=== PATIENT | female | born 1970 | race Caucasian/White ===

== ENCOUNTER 2025-11-07 09:55 | Outpatient (AMB) | payer BC, SELFPAY ==
--- NOTE | 2025-11-07 09:58 | A.OFFPC_ITS ---
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 Note: had partial hysterectomy and part of thyroid removed due to masses on thyroid Accompanied by: Self / Same As Patient Allergies hydromorphone (From Dilaudid) Adverse Reaction (Severe, Verified 11/07/25 10:09) Vomiting Tobacco use date assessed: 11/07/25 Dental Screening Dental Screen Date: 11/07/25 Did you have a dental visit in the last 12 months?: Yes Was dental information given to patient?: Patient has dentist HPI HPI Comments History of Present Illness Details History of Present Illness The patient is a 54 year old female presenting to [facility] care with a new primary care physician after moving from [place] to [place]. 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 She underwent [facility] disc replacements in her neck pe rformed by Dr. Crawley at [facility] [place]. Associated symptoms include nerve damage, with shooting pains up her spine, spasms, and numbness in her arm and foot. She reports her lower back is not currently operable. Past medications for this include Nortriptyline, which she is attempting to taper, and low-dose naltrexone. Hypothyroidism: The patient has a history of a partial thyroidectomy, resulting in hypothyroidism for which she takes [place] Thyroid. Her current dosage is 45 mg (a 30 mg and a 15 mg pill). This medication was started by a PA at [facility] and is chosen over synthetic options like Synthroid due to the patient's preference for a natural treatment and her observation that friends on synthetic thyroid hormones have more associated health problems. She undergoes regular blood work to monitor her T3 and T4 levels. Fibromyalgia: The patient has been diagnosed with fibromyalgia by multiple doctors, most recently by [facility] and a physician in [place]. She also mentions a diagnosis of spondylomalgia, which she does not believe in, viewing it as a label for unexplained nerve issues. Symptoms include shooting pains, soreness in the shoulders and hips, and discomfort that affects her sleep. Her mother was also diagnosed with fibromyalgia. Perimenopausal state: The patient believes she is in a perimenopausal phase, which is monitored via blood work due to her partial hysterectomy. She reports still feeling like she gets a period, experiencing about one week per month where she has an intractable headache. She is working with [facility] to manage her hormones and wishes to be progressive with treatment to avoid symptoms like lethargy and hot flashes. Partial Hysterectomy: The patient has a history of a partial hysterectomy. She acknowledges she still has a uterus. Her last Pap smear was about a year ago, and she needs to establish care with a new MEDICAL SPECIALIST. Migraine: The patient experiences severe migraines for which she takes sumatriptan as needed. She is working with [facility] to reduce her reliance on sumatriptan by taking supplements such as a specific type of magnesium, CoQ10, and vitamin D. This approach has resulted in her taking less sumatriptan. She links some headaches to her perimenopausal hormonal cycle, noting a week each month with severe headaches. History of parasitic infections: The patient reports a history of multiple parasitic infections due to spending a lot of time outdoors. This includes a history of Lyme disease and another inf ection acquired while hiking in [facility], which required eight months of medication to resolve. Surgical History: - [facility] disc replacements in her neck - Partial thyroidectomy - Partial hysterectomy - Knee surgery (details not specified) - Nose surgery for a bleeding open vesse l - Breast augmentation (over 20 years ago ) Medications: - Nortriptyline: for spinal nerve damage and restless legs syndrome. - Sumatriptan: as needed for severe migr aines. - [place] Thyroid 45 mg (30 mg and 15 mg) : for hypothyroidism following partial thyroidectomy. - Naltrexone (low dose): for neuropathic pain. - Magnesium, CoQ10, Vitamin D: supplemen ts for headache management. Social History: - Substance Use: Denies ever smoking or using illicit drugs. 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 - Exercise: Has a fitness background and is knowledgeable about physical therapy and strength moves. - Housing/Family: Recently moved from [facility] to [place]. - Body composition: Reports having a bod y fat percentage below 12% when she was a licensed mental health professional. Family History: - Mother: Diagnosed with fibromyalgia. - Colon Cancer: Denies any close family history of colon cancer. Diagnostic Results: - Pap smear: a pap smear was performed a bout a year ago. - Mammogram: The last mammogram was perf ormed at [facility] [place] many years ago. - Lab work: The patient reports being lo w on vitamin D. Past Medical History - Spinal injuries, including broken neck and herniated discs, status post cervical disc replacement. - Hypothyroidism, status post partial th yroidectomy. - Partial hysterectomy. - Restless legs syndrome. - Diagnosed with autoimmune disorder. - Severe migraines. - Perimenopausal state. - Fibromyalgia. - History of Lyme disease. - History of parasitic infection requiri ng eight months of treatment. - Allergy to Dilaudid. - History of multiple bone fractures. Health Maintenance - Colon Cancer Screening: She is due for screening and has no family history of colon cancer. - Cervical Cancer Screening: She had a P ap smear one year ago and is due for follow-up, pending review of records to determine if a 3 or 5-year interval is appropriate. - Breast Cancer Screening: She has a his tory of breast augmentation over 20 years ago. - Her last mammogram at [facility] [place] was many years ago, and a specialist recently recommended a scan for follow-up. [facility] Medical History (Updated 11/07/25 @ 19:24 by Gregory Sargent MD) History of Lyme disease Restless leg syndrome History of parasitic infection Migraine Perimenopause Fibromyalgia Hypothyroid Surgical History (Updated 11/07/25 @ 19:24 by Gregory Sargent MD) History of partial hysterectomy Family History (Updated 11/07/25 @ 09:59 by Karina Stephens CMA) Mother No problems noted. Father No problems noted. Social History Housing: House Patient Tobacco Use Status: Never used Tobacco e-Cigarette/Vaping Use: Never Used service: No Current occupational status: employed Cognitive needs: No Hearing needs: No Vision needs: Yes (glasses) Questionnaire PHQ-9 Over the last 2 weeks, how often have you been bothered by any of the following problems? 1. Little interest or pleasure in doing things: not at all 2. Feeling down, depressed, or hopeless: not at all 3. Trouble falling or staying asleep, or sleeping too much: not at all 4. Feeling tired or having little energy: not at all 5. Poor appetite or overeating: not at all 6. Feeling bad about yourself - or that you are a failure or have let yourself or your family down: not at all 7. Trouble concentrating on things, such as reading the newspaper or watching television: not at all 8. Moving or speaking so slowly that other people could have noticed. Or the opposite - being so fidgety or restless that you have been moving around a lot more than usual: not at all 9. Thoughts that you would be better off or of hurting yourself in some way: not at all Total score: 0 Depression Screening Interpretation: Negative Depression Screening Done: Yes Source: Developed by Drs. Keith Pate, Matilde Pacheco, Dominic Sheikh and colleagues, with an educational marilyn from [employer]. Thrive Questionnaire Date Thrive assessed: 11/07/25 I am a: Patient What is your living situation today?: I have a steady place to live Within the past 12 months, did the food you bought not last and you didn't have the money to get more?: I choose not to answer this question Within the past 12 months, did you worry whether your food would run out before you got money to buy more?: I choose not to answer this question Do you have trouble paying for medicines?: I choose not to answer this question Do you have trouble getting transportation to medical appointments?: I choose not to answer this question Do you have trouble paying your heating and electricity bill?: I choose not to answer this question Do you have trouble taking care of your child, family member or friend?: I choose not to answer this question Are you currently unemployed and looking for a job?: I choose not to answer this question Are you interested in more education?: I choose not to answer this question Please select the resources that you would like help with: None Currently or been in a relationship where the following occur: I choose not to answer THRIVE Score: 0 AUDIT C Alcohol Use Questionnaire (AUDIT-C) 1. How often do you have a drink containing alcohol?: Never Total Score: 0 TAJ-7 AMB Questionnaire TAJ-7 Date TAJ - 7 assessed: 11/07/25 Feeling nervous, anxious, or on edge: 0 = Not at all Not being able to stop or control worryin = Not at all Worrying too much about different things: 0 = Not at all Trouble relaxin = Not at all Being so restless that it is hard to sit still: 0 = Not at all Becoming easily annoyed or irritable: 0 = Not at all Feeling afraid as if something awful might happen: 0 = Not at all Total TAJ-7 score (0-4 normal; 5-9 mild; 10-14 moderate; 15-21 severe): 0 Source: Developed by Drs. Keith Pate, Matilde Pacheco, Dominic Sheikh and colleagues, with an educational marilyn from [employer]. Review of Systems Narrative Review of Systems - Neurological: Reports spinal nerve damage, shooting pains up her spine, restless leg syndrome, severe migraines, numbness in her arm and foot, and spasms. - Musculoskeletal: Reports soreness in shoulders and hips. - Constitutional: Reports lethargic feelings and hot flashes. - Sleep: Reports poor sleep due to discomfort and moving a lot. - GI/: Reports no issues with bowel or bladder function. - Allergies/Immunology: Reports an allergy to Dilaudid, which causes severe headaches and projectile vomiting. 10-point ROS reviewed and negative except as noted in HPI Physical exam (Primary Care) Vital Signs: Last Vital Signs Temp 97.8 F 11/07/25 10:06 Pulse 93 11/07/25 10:06 BP 132/82 11/07/25 10:06 Pulse Ox 97 11/07/25 10:06 Oxygen Delivery Method Room Air 11/07/25 10:06 BMI result Body Mass Index 28.5 Tobacco/Smoking Status: Tobacco use Status Tobacco use date assessed 11/07/25 11/07/25 09:59 Patient Tobacco Use Status Never used Tobacco 11/07/25 09:59 e-Cigarette/Vaping Use Never Used 11/07/25 09:59 PHQ-9: PHQ-9 Score PHQ-9: Total score 0 11/07/25 12:38 Depression Screening Interpretation: Negative Thrive Assessment: Date of Thrive Assessment Date Thrive assessed 11/07/25 11/07/25 09:59 Currently or been in a relationship where the following occur: I choose not to answer Narrative Physical Exam General: Well-appearing, in no acute distress. Vital signs: Within normal limits. HEENT: Normocephalic, atraumatic. PERRLA, EOMI. Conjunctiva clear, sclera anicteric. Oropharynx clear, mucous membranes moist. TMs intact bilaterally. Neck: Supple, no lymphadenopathy, no thyromegaly, no JVD or carotid bruits. History of [facility] disc replacements in the neck. Cardiovascular: RRR, normal S1/S2, no murmurs, rubs, or gallops. Peripheral pulses 2+ and symmetric. No edema. Respiratory: Lungs clear to auscultation bilaterally, no wheezes, rales, or rhonchi. Normal effort. Abdomen: Soft, non-tender, non-distended. Normoactive bowel sounds. No hepatosplenomegaly, no masses. MSK: Full range of motion, no joint swelling or deformity. Normal gait. History of spinal injuries and broken bones. Skin: Warm, dry, intact. No rashes, lesions, or pallor. Neuro: Alert and oriented x3. Cranial nerves II-XII intact. Strength 5/5 throughout. Sensation intact. Reflexes 2+ symmetric. Normal coordination and gait. History of restless leg syndrome and neuropathic pain. Psych: Appropriate mood and affect. Normal judgment and insight. History of fibromyalgia symptoms. Office Procedures Flu Questionnaire Does the patient have a severe egg allergy?: No Does the patient have severe life threatening allergies?: No Does the patient have a fever or illness today?: No Has the patient ever had Guillain-Sayre Syndrome?: No Has the patient ever had any past reaction to a flu shot?: No Immunizations Fluarix [id number] (PF) 45 mcg (15 mcg x 3)/0.5 mL IM syringe Performing Provider: Gregory Sargent MD [place] [facility] Documented (not given) by: Karina Stephens CMA on 11/07/25 10:32 Reason Not Given: Patient Refused Coding Level of Care Code New Pt Level 4 (51744) Diagnoses Hypothyroid E03.9 Fibromyalgia M79.7 Perimenopause N95.1 History of partial hysterectomy Z90.711 Migraine G43.909 History of parasitic infection Z86.19 Restless leg syndrome G25.81 History of Lyme disease Z86.19 Assessment & Plan Assessment & Plan (1) Hypothyroid: Code(s): E03.9 - Hypothyroidism, unspecified Category: Medical (2) Fibromyalgia: Code(s): M79.7 - Fibromyalgia Category: Medical (3) Perimenopause: Code(s): N95.1 - Menopausal and female climacteric states Category: Medical (4) History of partial hysterectomy: Code(s): Z90.711 - Acquired absence of uterus with remaining cervical stump Category: Surgical (5) Migraine: Code(s): G43.909 - Migraine, unspecified, not intractable, without status migrainosus Category: Medical (6) History of parasitic infection: Code(s): Z86.19 - Personal history of other infectious and parasitic diseases Category: Medical (7) Restless leg syndrome: Code(s): G25.81 - Restless legs syndrome Category: Medical (8) History of Lyme disease: Code(s): Z86.19 - Personal history of other infectious and parasitic diseases Category: Medical Plan Consent The patient provided verbal consent to proceed with Cologuard testing for colon cancer screening after discussing the alternatives, which included a traditional colonoscopy requiring bowel preparation and sedation. She also consented to a comprehensive lab workup. Consent to release medical records from [facility] has also been provided. Patient was informed and verbally consented to the use of an ambient scribe for clinic note documentation during this visit. Plan 1. Establishment Of Care/Preventative Care - Obtain all prior medical records, including from Dr. Crawley for spinal issues, [facility], and her previous primary care doctor in [place]. - Order comprehensive baseline lab work including: CBC, CMP, HbA1c, Hepatitis B, Hepatitis C, HIV, lipid panel, magnesium, syphilis panel, thyroid panel, urinalysis, vitamin B12, folate, and vitamin D. - Order a Cologuard test for colon cancer screening. - Discussed performing women's health services, including Pap smears, but will defer until prior records are reviewed to determine when she is next due. A referral to an MEDICAL SPECIALIST is an option if she prefers. - Follow up in two weeks to discuss lab results. - Recommended the patient become educated on her own medications. 2. Chronic Pain / Spinal Issues / Fibromyalgia - Acknowledged patient's preference to avoid prescription medications and focus on root causes of problems. - Plan to review current medication regimen (Nortriptyline, Low-Dose Naltrexone) upon receipt of medical records. - Will collaborate with other providers, including those at [facility], but will provide my own independent assessment. 3. Hypothyroidism/Perimenopause - A complete thyroid panel will be checked as part of the initial lab workup. - Will review the rationale for using [place] Thyroid over synthetic options once records are received and lab results are available. - Will provide an opinion on hormone management after a comprehensive review of her case. Discussion Notes I introduced myself to the patient, who is new to the practice. We discussed her extensive medical history, including multiple spinal injuries and surgeries, hypothyroidism, perimenopausal symptoms, and diagnoses of fibromyalgia and restless leg syndrome. I emphasized the importance of her understanding the medications she is taking, noting her initial deferral to her for medication names was a concern. We discussed her preference for a holistic approach to medicine and avoiding unnecessary prescriptions, and I explained that my practice philosophy aligns with getting to the root of problems rather than just masking symptoms. I explained the need for comprehensive medical records from all her previous providers to ensure continuity of care. For preventative screening, I reviewed the options for colon cancer screening, and the patient opted for the Cologuard test over a traditional colonoscopy. I outlined the extensive lab work I would be ordering today to establish a baseline. I informed her that while I am willing to collaborate with her other providers, such as the PA at the integrative medicine clinic, I will form my own independent medical opinions. The physical exam was unremarkable. I advised her to have the labs drawn today and to schedule a follow-up appointment in two weeks to review all results. Patient Instructions - Please get your blood drawn today. We have ordered a full panel of tests to check your blood counts, liver and kidney function, cholesterol, thyroid, and vitamin levels. - We have ordered a Cologuard test for your colon cancer screening. It will be mailed to your home. Please follow the instructions to collect the sample and mail it back. - Please ensure you sign the necessary forms so we can receive your medical records from your previous doctors. - It is very important that you know the names of the medications you are taking and why you are taking them. - Schedule a follow-up appointment in two weeks to go over your lab results and discuss the next steps. Medical Decision Making The patient is a 54-year-old female with a complex medical history presenting to [facility] care. Her primary issues include chronic pain secondary to significant spinal injuries, hypothyroidism post-partial thyroidectomy, and a constellation of symptoms attributed to fibromyalgia and perimenopause. Given her extensive history and involvement with multiple providers, including an integrative medicine clinic, the immediate goal is to consolidate her medical record and establish a comprehensive baseline. My decision to order a comprehensive set of labs (CBC, CMP, lipids, HbA1c, thyroid panel, vitamins D and B12) is to objectively assess her metabolic, endocrine, and nutritional status, which is crucial for evaluating her symptoms of pain, fatigue, and poor sleep. This will also help in evaluating the appropriateness of her current [place] Thyroid and supplement regimen. The patient is overdue for colon cancer screening; after discussing the risks and benefits of colonoscopy versus a stool-based test, she opted for Cologuard, which is an appropriate choice for an average-risk individual. The patient expresses a strong preference for a holistic approach and minimizing pharmaceutical interventions, which aligns with my practice style of seeking root causes. 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 Further management of her chronic pain, hormonal symptoms, and medication adjustments will be deferred until after a thorough review of her past records and current lab results at the two-week follow-up visit. Total Time Statement 30 min Total time spent caring for the patient today includes pre-visit chart review, documentation, review of laboratory and diagnostic imaging results, medication reconciliation, medically necessary evaluation, counseling on diagnoses, care coordination, ordering appropriate tests and medications, review of tests pe rformed by other providers, reporting test results to the patient, and communication with other healthcare providers. Orders: Orders Hepatitis B Surface Antigen Today Z13.9 - Encounter for screening, unspecified Comprehensive Met. Panel Today Z13.9 - Encounter for screening, unspecified Hepatitis C Antibody Today Z13.9 - Encounter for screening, unspecified UA CC w/rflx Micro + Cult Today Z13.9 - Encounter for screening, unspecified Vitamin B12 and Folate Today Z13.9 - Encounter for screening, unspecified Magnesium Today Z13.9 - Encounter for screening, unspecified Vitamin D 1,25 dihydroxy Today Z13.9 - Encounter for screening, unspecified Hepatitis B Surface Antibody Today Z13.9 - Encounter for screening, unspecified Influenza [id number] Immunization Today Z23 - Encounter for immunization Complete Blood Count Auto Diff Today Z13.9 - Encounter for screening, unspecified Syphilis Screen Today Z13.9 - Encounter for screening, unspecified TSH reflex Free T4 Today Z13.9 - Encounter for screening, unspecified HIV Ab/Ag Today Z13.9 - Encounter for screening, unspecified Lipid Panel Today Z13.9 - Encounter for screening, unspecified Hemoglobin A1c Today Z13.9 - Encounter for screening, unspecified Referrals Cologuard Test Z12.11 - Encounter for screening for malignant neoplasm of colon, Z12.12 - Encounter for screening for malignant neoplasm of rectum
[2025-11-07 10:06] VITALS: BP 132/82; PULSE 93; TEMP 36.6; O2SAT 97; BMI 28.5
== END 2025-11-07 10:42 | disposition home or self-care (01) ==
LOC: HO.HMCFMS 09:56
PROVIDERS: PCP Student in an Organized Health Care Education/Training Program; Visit Provider Student in an Organized Health Care Education/Training Program
DX: E03.9 Hypothyroidism, unspecified (principal); M79.7 Fibromyalgia; N95.1 Menopausal and female climacteric states; Z90.711 Acquired absence of uterus with remaining cervical stump; G43.909 Migraine, unspecified, not intractable, without status migrainosus; Z86.19 Personal history of other infectious and parasitic diseases; G25.81 Restless legs syndrome; Z23 Encounter for immunization

== ENCOUNTER 2025-11-07 09:55 | Outpatient (REF) | payer BC, SELFPAY ==
[2025-11-07 13:42] LABS: Appearance Urine Clear; Glucose Urine UA Negative (Negative); PH 7.5 (5.0-9.0); Specific Gravity - Urine 1.015 (1.005-1.025); UMIC TRIGGER UACC YES
[2025-11-07 17:14] LABS: Alanine Aminotransferase 25 U/L (0-31); Albumin Level 4.6 g/dL (3.5-5.0); Alkaline Phosphatase 62 U/L (39-117); Anion Gap 10 (12-20); Aspartate Amino Transferase 20 U/L (5-31); Blood Urea Nitrogen 15 mg/dL (9-16); Calcium 9.1 mg/dL (8.4-10.2); Carbon Dioxide 28 mmol/L (22-29); Chloride 103 mmol/L (96-108); Cholesterol 238 mg/dL (<200); Estimated Glomerular Filt Rate > 60; HDL Cholesterol 76 mg/dL (>40); Magnesium 2.0 mg/dL (1.6-2.6); Potassium 4.1 mmol/L (3.3-5.1); Sodium 137 mmol/L (135-145); Total Protein 7.3 g/dL (6.5-8.0); Triglycerides 114 mg/dL (<150)
[2025-11-07 18:04] LABS: Folate 8.9 ng/mL (> or = 4.0); Vitamin B12 1181 pg/mL (200-900)
[2025-11-08 01:10] LABS: MANUAL DIFF FLAG NO
[2025-11-08 01:16] LABS: Hematocrit 39.9 % (37.0-47.0); Hemoglobin 13.0 g/dl (12.0-16.0); Imm Gran Abs Auto 0.03 X10*3/uL (0.00-0.03); Imm Gran Pct Auto 0.3 % (0.0-0.4); Lymphocytes Absolute Auto 2.2 X10*3/uL (1.2-4.9); Mean Corpuscular HGB Conc 32.6 g/dl (31.0-35.0); Mean Corpuscular Hemoglobin 29.1 pg (27.0-33.0); Mean Corpuscular Volume 89.3 fL (80.0-98.0); NRBC Abs Auto 0.000 X10*3/uL (0.0-0.012); NRBC Pct Auto 0.0 /100WBC (0.0-0.2); Platelet Count 301 X10*3/uL (160-400); Red Blood Count 4.47 X10*6/uL (4.20-5.50); White Blood Count 11.0 X10*3/uL (4.8-10.8)
[2025-11-08 03:58] LABS: Syphilis Screen Nonreactive (Nonreactive)
[2025-11-08 04:31] LABS: HBS Num1 0.00 mIU/mL (0-7.99); HBsAGNum1 0.43 S/CO (0.00-0.99); HIV Num 1 0.07 S/CO (0.00-0.99); Hepatitis B Surface Antigen Negative (Negative); ~HepC Num1 0.07 S/CO (0.00-0.79); ~Hepatitis B Surface Antibody NONREACTIVE (Nonreactive); ~Hepatitis C Antibody Nonreactive (Nonreactive)
[2025-11-11 14:53] LABS: VITAMIN D (1,25 OH) D3 62 pg/mL; Vit D (1,25-Dihydroxy) Total 62 pg/mL (18-72); Vitamin D (1,25 OH) D2 <8 pg/mL
== END 2025-11-07 09:56 | disposition home or self-care (01) ==
LOC: HO.HKASLDS 09:55
PROVIDERS: PCP Student in an Organized Health Care Education/Training Program; Visit Provider Student in an Organized Health Care Education/Training Program
DX: Z13.9 Encounter for screening, unspecified (principal); Z28.82 Immunization not carried out because of caregiver refusal; E03.9 Hypothyroidism, unspecified; M79.7 Fibromyalgia; N95.1 Menopausal and female climacteric states; G43.909 Migraine, unspecified, not intractable, without status migrainosus; G25.81 Restless legs syndrome; Z90.711 Acquired absence of uterus with remaining cervical stump; Z86.19 Personal history of other infectious and parasitic diseases; Z79.899 Other long term (current) drug therapy
CPT/HCPCS: 36415; 80053; 80061; 81001; 82607; 82652; 82746; 83036; 83735; 84443; 85025; 86706; 86780; 86803; 87340; 87389; 90471; 96127

== ENCOUNTER 2025-11-29 09:04 | Outpatient (AMB) | payer BC, SELFPAY ==
[2025-11-29 09:04] VITALS: BP 138/78; PULSE 88; RESP 16; TEMP 36.9; O2SAT 97; BMI 28.9
--- NOTE | 2025-11-29 09:04 | A.OFFPC_ITS ---
Vital Signs 11/29/25 09:04 Height 5 ft 6.5 in Weight 181 lb 8 oz BMI 28.9 BP 138/78 Blood Pressure Location Lt brachial Position Sitting Respiration 16 Pulse 88 Pulse Source Pulse Oximeter Temp 98.4 F Temp Source Oral Pulse Oximetry (%) 97 Oxygen Delivery Method Room Air Intake Visit Reasons: 2 wk - lab review Intake Note: had partial hysterectomy and part of thyroid removed due to masses on thyroid Accompanied by: Self / Same As Patient Allergies hydromorphone (From Dilaudid) Adverse Reaction (Severe, Verified 11/29/25 09:10) Vomiting Medication List - Last Reconciled 11/29/25 by Gregory Sargent MD nortriptyline 30 mg PO BEDTIME sumatriptan succinate mg PO thyroid (pork) ([place] Thyroid) 30 mg PO DAILY thyroid (pork) ([place] Thyroid) 15 mg PO QAM Tobacco use date assessed: 11/29/25 Dental Screening Dental Screen Date: 11/29/25 Did you have a dental visit in the last 12 months?: Yes Was dental information given to patient?: Patient has dentist HPI HPI Comments History of Present Illness Details History of Present Illness The patient is a 54 year old female presenting for a review of her recent lab results, extreme exhaustion, and rapid weight gain. Hypercholesterolemia: Recent non-fasting lab results revealed an elevated total cholesterol of 238 mg/dL and an LDL of 140 mg/dL. Hematuria: A recent urinalysis showed trace amounts of blood. The patient has a history of a partial hysterectomy and does not menstruate. She denies ever being told she had blood in her urine before. Sepsis secondary to Urinary Tract Infection: The patient had her first and only remembered urinary tract infection between December and January of last year. She was seen at an urgent care, prescribed an incorrect antibiotic, and subsequently collapsed while at work in [place], requiring an ambulance and hospitalization for sepsis. Fatigue and Abnormal Weight Gain: The patient reports being extremely exhausted all the time, waking up tired, and needing to take two or three naps daily. She has also experienced rapid weight gain of 30 to 40 pounds over the last year, despite stating she does not eat poorly. Sleep Disturbance: The patient reports having pain while sleeping and difficulty sleeping since she broke her neck in 2010. She always wakes up in the middle of the night but denies any snoring. She has never had a sleep study. Surgical History: - Partial hysterectomy Medications: - Vitamin B12 supplements Social History: - Employment: The patient describes her job as intense at times. - Nutrition: Reports that she does not h ave a poor diet. - Weight Management: Reports a rapid alka ght gain of 30-40 pounds in the last year. - Travel: Travels for work and will be i [facility] for three months. Diagnostic Results: - CBC: White blood cells were slightly e levated at 11; neutrophils were elevated at 73. - Comprehensive Metabolic Panel: Sodium, potassium, renal function, glucose, calcium, and magnesium are normal. - Hemoglobin A1c: Level is normal, with no evidence of prediabetes or diabetes. - Liver Function Tests: Normal. - Lipid Panel (non-fasting): Total becky sterol is elevated at 238 mg/dL; LDL is elevated at 140 mg/dL; triglycerides are normal. - Vitamins: Vitamin B12 is high at 1181 pg/mL; vitamin D and folate are normal. - Thyroid studies: Normal. - Urinalysis: Positive for a small amoun t of blood. - Infectious Disease Screen: Negative fo r syphilis, hepatitis B, hepatitis C, and HIV. Past Medical History - Urinary tract infection complicated by sepsis (December-January of last year) - Neck fracture Health Maintenance - Reviewed recent lab work, including CB C, metabolic panel, lipids, HbA1c, vitamins, and thyroid function. - Discussed elevated Vitamin B12 levels and advised to reduce supplementation. - Screening for syphilis, hepatitis B, h epatitis C, and HIV were all negative. [facility] Medical History (Updated 11/29/25 @ 22:42 by Gregory Sargent MD) History of Lyme disease Restless leg syndrome History of parasitic infection Migraine Perimenopause Fibromyalgia Hypothyroid Surgical History History of partial hysterectomy Family History Mother No problems noted. Father No problems noted. Social History Housing: House Patient Tobacco Use Status: Never used Tobacco e-Cigarette/Vaping Use: Never Used service: No Current occupational status: employed Cognitive needs: No Hearing needs: No Vision needs: Yes (glasses) Questionnaire PHQ-9 Over the last 2 weeks, how often have you been bothered by any of the following problems? 1. Little interest or pleasure in doing things: not at all 2. Feeling down, depressed, or hopeless: not at all 3. Trouble falling or staying asleep, or sleeping too much: not at all 4. Feeling tired or having little energy: not at all 5. Poor appetite or overeating: not at all 6. Feeling bad about yourself - or that you are a failure or have let yourself or your family down: not at all 7. Trouble concentrating on things, such as reading the newspaper or watching television: not at all 8. Moving or speaking so slowly that other people could have noticed. Or the op posite - being so fidgety or restless that you have been moving around a lot more than usual: not at all 9. Thoughts that you would be better off or of hurting yourself in some way: not at all Total score: 0 Depression Screening Interpretation: Negative Depression Screening Done: Yes Source: Developed by Drs. Keith Pate, Matilde Pacheco, Dominic Sheikh and colleagues, with an educational marilyn from [employer]. Thrive Questionnaire Date Thrive assessed: 11/29/25 I am a: Patient What is your living situation today?: I have a steady place to live Within the past 12 months, did the food you bought not last and you didn't have the money to get more?: I choose not to answer this question Within the past 12 months, did you worry whether your food would run out before you got money to buy more?: I choose not to answer this question Do you have trouble paying for medicines?: I choose not to answer this question Do you have trouble getting transportation to medical appointments?: I choose not to answer this question Do you have trouble paying your heating and electricity bill?: I choose not to answer this question Do you have trouble taking care of your child, family member or friend?: I choose not to answer this question Are you currently unemployed and looking for a job?: I choose not to answer this question Are you interested in more education?: I choose not to answer this question Please select the resources that you would like help with: None Currently or been in a relationship where the following occur: I choose not to answer THRIVE Score: 0 AUDIT C Alcohol Use Questionnaire (AUDIT-C) 1. How often do you have a drink containing alcohol?: Never Total Score: 0 TAJ-7 AMB Questionnaire TAJ-7 Date TAJ - 7 assessed: 11/29/25 Feeling nervous, anxious, or on edge: 0 = Not at all Not being able to stop or control worryin = Not at all Worrying too much about different things: 0 = Not at all Trouble relaxin = Not at all Being so restless that it is hard to sit still: 0 = Not at all Becoming easily annoyed or irritable: 0 = Not at all Feeling afraid as if something awful might happen: 0 = Not at all Total TAJ-7 score (0-4 normal; 5-9 mild; 10-14 moderate; 15-21 severe): 0 Source: Developed by Drs. Keith Pate, Matilde Pacheco, Dominic Sheikh and colleagues, with an educational marilyn from [employer]. Review of Systems Narrative Review of Systems - Constitutional: Reports extreme fatigue and rapid weight gain of 30-40 pounds in the past year. - Genitourinary: Denies menses post-partial hysterectomy. - Neurologic/Sleep: Reports difficulty sleeping with pain and waking in the middle of the night since a neck injury in 2010. - Denies snoring. 10-point ROS reviewed and negative except as noted in HPI Physical exam (Primary Care) Vital Signs: Last Vital Signs Temp 98.4 F 11/29/25 09:04 Pulse 88 11/29/25 09:04 Resp 16 11/29/25 09:04 BP 138/78 11/29/25 09:04 Pulse Ox 97 11/29/25 09:04 Oxygen Delivery Method Room Air 11/29/25 09:04 BMI result Body Mass Index 28.9 Tobacco/Smoking Status: Tobacco use Status Tobacco use date assessed 11/29/25 11/29/25 09:06 Patient Tobacco Use Status Never used Tobacco 11/29/25 09:06 e-Cigarette/Vaping Use Never Used 11/29/25 09:06 PHQ-9: PHQ-9 Score PHQ-9: Total score 0 11/29/25 09:48 Depression Screening Interpretation: Negative Thrive Assessment: Date of Thrive Assessment Date Thrive assessed 11/29/25 11/29/25 09:06 Currently or been in a relationship where the following occur: I choose not to answer Narrative Physical Exam General: Well-appearing, in no acute distress. Reports feeling extremely exhausted all the time, with rapid weight gain of 30-40 pounds over the past year. Vital signs: Within normal limits. HEENT: Normocephalic, atraumatic. PERRLA, EOMI. Conjunctiva clear, sclera anicteric. Oropharynx clear, mucous membranes moist. TMs intact bilaterally. Neck: Supple, no lymphadenopathy, no thyromegaly, no JVD or carotid bruits. Cardiovascular: RRR, normal S1/S2, no murmurs, rubs, or gallops. Peripheral pulses 2+ and symmetric. No edema. Respiratory: Lungs clear to auscultation bilaterally, no wheezes, rales, or rhonchi. Normal effort. Abdomen: Soft, non-tender, non-distended. Normoactive bowel sounds. No hepat osplenomegaly, no masses. MSK: Full range of motion, no joint swelling or deformity. Normal gait. Skin: Warm, dry, intact. No rashes, lesions, or pallor. Neuro: Alert and oriented x3. Cranial nerves II-XII intact. Strength 5/5 throughout. Sensation intact. Reflexes 2+ symmetric. Normal coordination and gait. Psych: Appropriate mood and affect. Normal judgment and insight. Reports difficulty sleeping, waking up in the middle of the night, and feeling tired upon waking. No history of sleep study. Coding Level of Care Code Est Pt Level 3 (56678) Add On Problem Visit Only Diagnoses Hypothyroid E03.9 Microscopic hematuria R31.29 Hypercholesterolemia E78.00 Fatigue R53.83 Abnormal weight gain R63.5 Sleep disturbance G47.9 Assessment & Plan Assessment & Plan (1) Hypothyroid: Code(s): E03.9 - Hypothyroidism, unspecified Category: Medical (2) Microscopic hematuria: Code(s): R31.29 - Other microscopic hematuria Category: Medical (3) Hypercholesterolemia: Code(s): E78.00 - Pure hypercholesterolemia, unspecified Category: Medical (4) Fatigue: Code(s): R53.83 - Other fatigue Category: Medical (5) Abnormal weight gain: Code(s): R63.5 - Abnormal weight gain Category: Medical (6) Sleep disturbance: Code(s): G47.9 - Sleep disorder, unspecified Category: Medical Plan Consent The patient provided verbal consent for a repeat urinalysis to investigate hematuria and for a referral for an at-home sleep study to evaluate her fatigue and sleep disturbances after discussing the rationale. Patient was informed and verbally consented to the use of an ambient scribe for clinic note documentation during this visit. Plan 1. Fatigue And Abnormal Weight Gain - The patient reports extreme fatigue and a rapid weight gain of 30-40 pounds over the last year. - She also reports long-standing difficulty sleeping since a neck fracture in 2010, characterized by waking in the middle of the night. - Given that her lab work, including thyroid and vitamin B12 levels, is normal, an at-home sleep study will be ordered to investigate for a potential sleep disorder like sleep apnea as the cause of her symptoms. - The patient will coordinate with the sleep study company for logistics as she is traveling. 2. Hematuria - Recent urinalysis revealed trace blood. - Given the patient has had a partial hysterectomy and is not menstruating, a repeat urinalysis will be performed today to verify this finding. 3. Hypercholesterolemia - Non-fasting labs showed elevated total cholesterol (238) and LDL (140). - The patient was reassured that since the test was non-fasting, the values are likely lower and there is no immediate reason for worry. 4. Lab Abnormalities - The patient's white blood cell count and neutrophils were slightly elevated, possibly indicating a brewing bacterial infection, but she is asymptomatic. - Vitamin B12 level is extremely high (1181) due to supplementation. - She is advised to reduce her intake of vitamin B12 supplements. Discussion Notes I reviewed the patient's lab results with her. I explained the mild elevation in her white blood cells and neutrophils, the non-fasting elevation in her cholesterol, and the significantly high vitamin B12 level due to her supplements, advising her to cut back. We discussed the finding of trace blood in her urine, and I recommended repeating the test today to ensure it is not a persistent issue, to which she agreed. Her primary concerns of extreme fatigue and rapid weight gain were addressed. I explained that since her thyroid and vitamin levels were normal, we should investigate her long-standing sleep difficulties as a potential cause. I recommended an at-home sleep study to rule out a condition like sleep apnea, which could explain her fatigue and weight gain, and she agreed to proceed. Patient Instructions - Please stop by the lab to provide a urine sample before you leave today. - You can cut down on or stop taking your Vitamin B12 supplements, as your levels are very high. - We are ordering an at-home sleep study for you. - The sleep study company will contact you to arrange for you to miner pick the device or have it mailed to you. - Please coordinate with them, as you will be in [place]. Medical Decision Making The patient is a 54-year-old female who presented for a review of lab work and new concerns of significant fatigue and rapid weight gain. Lab analysis revealed several findings: mild leukocytosis and neutrophilia of unclear significance in an asymptomatic patient; non-fasting hypercholesterolemia which is noted but not actioned pending fasting confirmation; and a markedly elevated Vitamin B12 level secondary to supplementation, which she was advised to stop. The most concerning lab finding is trace hematuria, which warrants a repeat urinalysis for confirmation, especially given her post-hysterectomy status ruling out menstrual contamination. The primary clinical problem is the patient's severe fatigue and 30-40 pound weight gain over the past year. Initial metabolic and endocrine workup, including thyroid function, was unremarkable. Given her long-standing history of sleep disturbances and waking at night, an underlying sleep disorder such as sleep apnea is a strong possibility and a primary differential for her symptoms. Therefore, the next diagnostic step is an at-home sleep study to evaluate for sleep-disordered breathing, which could be the unifying explanation for her fatigue and metabolic changes. Total Time Statement 20 min Total time spent caring for the patient today includes pre-visit chart review, documentation, review of laboratory and diagnostic imaging results, medication reconciliation, medically necessary evaluation, counseling on diagnoses, care coordination, ordering appropriate tests and medications, review of tests performed by other providers, reporting test results to the patient, and communication with other healthcare providers. Orders: Orders UA CC w/rflx Micro + Cult Today R31.29 - Other microscopic hematuria RT home sleep study Today G47.00 - Insomnia, unspecified
--- OUTSIDE RECORDS SUMMARY | 2025-11-29 11:19 | XMS_ITS | Clinical Summary ---
Author Organization [facility] [place] [address] Care Team Providers Care Master Cook Name Role Phone Lucrecia Maravilla MD Primary Care Provider [phone] Social History Tobacco Use Types Packs/Day Years Used Date Smoking Tobacco: Never Assessed Comments Unknown Sex and Gender Information Value Date Recorded Sex Assigned at Not on file Legal Sex Female 8:11 AM EST Gender Identity Not on file Sexual Orientation Not on file Plan of Treatment Health Maintenance Due Date Last Done Comments Breast Cancer Screening 1970 Colorectal Cancer Screening: Colonoscopy 1970 DTaP,Tdap,and Td Vaccines (1 - Tdap) 1989 Hepatitis B Vaccines (1 of 3 - 19+ 3-dose series) 1989 Cervical Cancer Screening: P ap Smear 1991 Pneumococcal Vaccine: 50+ Ye ars (1 of 1 - PCV) 2020 Zoster Vaccines (1 of 2) 2020 HIV Screening 11/03/2022 Hepatitis C Screening 11/03/2022 Social Influencers of Health Screening 11/03/2022 Depression Screening 12/01/2024 COVID-19 Vaccine (1 - 2024-2 6 season) 2025 Influenza Vaccine (#1) 2025 RSV Immunization Adult Patie nts (1 - 1-dose 75+ series) 2045 HIB Vaccines Aged Out No longer eligi ble based on patient's age to complete this topic HPV Vaccines Aged Out No longer eligi ble based on patient's age to complete this topic Hepatitis A Vaccines Aged Out No long er eligible based on patient's age to complete this topic IPV Vaccines Aged Out No longer eligi ble based on patient's age to complete this topic MMR Vaccines Aged Out No longer eligi ble based on patient's age to complete this topic Meningococcal ACWY Vaccine Aged Out N o longer eligible based on patient's age to complete this topic Meningococcal B Vaccine Aged Out No l onger eligible based on patient's age to complete this topic RSV Immunization Patients Un eliza 20 months Aged Out No longer eligible b ased on patient's age to complete this topic Varicella Vaccines Aged Out No longer eligible based on patient's age to complete this topic Care Teams Master Cook Relationship Specialty Start Date End Date Lucrecia Maravilla MD PCP - General Internal Medicine 03/25/18
--- OUTSIDE RECORDS SUMMARY | 2025-11-29 11:19 | XMS_ITS | Clinical Summary ---
Author Organization [facility] Address [address] [place] [address] Care Team Providers Care Virtual Assistant For Advertisers Name Role Phone Sherrie Kilpatrick Unavailable Tomy Ann MD Unavailable [phone] Joel Cortez MD Primary Care Provider [phone] Allergies Active Allergy Reactions Criticality Noted Date Comments Hydromorphone GI Intolerance/Nausea/Vomiting High Dilaudid Medications [place] Thyroid 30 MG tablet Take 30 mg by mouth daily. 02/08/20 23 Active thyroid (ARMOUR) 15 MG tablet Take 15 mg by mouth daily. Active ECHINACEA PO Take by mouth. Ac tive Multiple Vitamins-Minera ls (ZINC PO) Take by mouth. Ac tive TURMERIC CURCUMIN PO Take by mouth. Act [place] ProAir RespiClick 108 (90 Base) MCG/ACT inhalerIndicati ons:Exercise-in duced asthma INHALE 1-2 PUFFS 4 (FOUR) TIMES A DAY NEEDED FOR WHEEZING. 3 each 04/22/20 23 Active EPINEPHrine 0.3 mg/0.3 mL IJ auto-injection INJECT 1 PEN IN THE MUSCLE ONE TIME DIRECTED 06/19/20 23 Active Coenzyme Q10 (CoQ-10) 30 MG Cap Active Naltrexone HCl, Pain, (Lotrexone) 1.5 MG Cap Take by mouth. Activ e nortriptyline (PAMELOR) 10 MG capsuleIndicati ons:Migraine without aura and with status migrainosus, not intractable,Fib romyalgia TAKE THREE CAPSULES BY MOUTH NIGHTLY 270 capsule 1 10/13/20 25 Active SUMAtriptan (IMITREX) 50 MG tabletIndicatio ns:Migraine without aura and with status migrainosus, not intractable TAKE 1 TABLET BY MOUTH NEEDED FOR MIGRAINE. MAY REPEAT IN 2 HOURS IF UNRESOLVED (DO NOT EXCEED 4 TABLETS IN 24 HOURS) 9 tablet 1 11/21/20 25 Active SUMAtriptan (IMITREX) 50 MG tabletIndicatio ns:Migraine without aura and with status migrainosus, not intractable TAKE 1 TABLET BY MOUTH NEEDED FOR MIGRAINE. 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 Fibromyalgia 03/10/2023 03/10/2023 Assessment & Plan (03/10/2023 10:29 AM EDT): Seeing autoimmune specialist in [facility] in [facility],sees sherrie kaplan and functional medicine doctor in [place] for hormone specialist. Multinodular thyroid 03/10/2023 Assessment & Plan (03/10/2023 10:51 AM EDT): 03/2021 s/p partial thyroidectomy left due to increasing size and some compressive sx . Surgery done with endocrinology and surgeon through [facility] and [facility]: Stable follow-up with surgeon and trashman but she has not f/u in the past 1-2yrs. Labs done per px with her hormone and autoimmune specialist in [facility] ~dec -jan 2023 at [facility]. This specialist monitors tsh per px report. Recommend us thryoid to reeval remaining nodules. cc'd to her [place] team - dr morales and [facility]. Resolved Problems Problem Noted Date Diagnosed Date Resolved Date Numbness and tingling of rig ht lower extremity 08/04/2024 04/02/2025 Cystic acne 07/20/2023 07/20/2023 07/31/2024 Encounters Date Type Department Care Team Description 10/04/2025 8:30 AM EST Consult [facility] Plastic & Reconstructive Surgery [address] [place] [phone] Joel Cortez MD Smith, Steven S, MD Complication associated with silicone gel-filled breast implant (Primary Dx) from Last 3 Months Immunizations Immunization Administration Dates Next Due Pneumococcal Conjugate 20-Valent 08/04/2024 Tdap 10/10/2021 Social History Tobacco Use Types Packs/Day Years Used Date Smoking Tobacco: Never Smokeless Tobacco: Never Alcohol Use Standard Drinks/Week Comments Not Currently 0 (1 standard drink = 0.6 oz pur e alcohol) Less then 1 a month PHQ-2 Answer Date Recorded PHQ-2 Total Score 0 08/04/2024 Comments Unknown Sex and Gender Information Value Date Recorded Sex Assigned at Female 03/07/2023 3:17 PM EDT Legal Sex Female 11:57 AM EDT Gender Identity Female 03/07/2023 3:17 PM EDT Sexual Orientation Heterosexual (straight) 03/07 3:17 PM EDT Last Filed Vital Signs Vital Sign Reading Time Taken Comments Blood Pressure 130/86 08/23/2025 9:14 AM EDT Pulse 77 08/23/2025 9:14 AM EDT Temperature 36.5 C (97.7 F) 03/21/2025 12:37 PM EDT Respiratory Rate 16 03/21/2025 12:37 PM EDT Oxygen Saturation 97% 08/23/2025 9:14 AM EDT Inhaled Oxygen Concentration - - Weight 80.3 kg (177 lb) 10/04/2025 8:13 AM EST Height 167.6 cm (5' 6 ) 10/04/2025 8:13 AM EST Body Mass Index 28.57 10/04/2025 8:13 AM EST Plan of Treatment Upcoming Encounters Date Type Department Care Team (Late st Contact Info) Description 02/20/2026 9:00 AM EDT Office Visit [facility] Department of Family Medicine [place] [address] [employer] [facility] [address] [place] [phone] Joel Cortez MD [address] [place], [place] [phone] Health Maintenance Due Date Last Done Comments Hepatitis B Vaccines (1 of 3 - 19+ 3-dose series) 12/01 Mammogram 2010 RSV Vaccine 50 years and old er and Patients (1 - Risk 50-74 years 1-dose series) 2020 Zoster (Shingles) Vaccine (1 of 2) 2020 Colonoscopy 08/17/2026 08/17/2023 Pap Smear (Ages 21-65) 10/05/2027 10/05/2024 DTaP/Tdap/Td Vaccines (2 - Td or Tdap) 10/10/2031 COVID-19 Vaccine Discontinued 11/26/2021 Pneumococcal Vaccines 50+ Completed 08/04/2024 HIV Screening Completed 10/05/2024 Hepatitis C Virus Screening Completed 10/05/2024 Influenza Vaccine Discontinued Procedures Procedure Name Priority Date/Time Associated Diagnosis Comments HIV 1/2 AG/AB CMIA REFLEX TO CONFIRMATION Routine 10/05/2024 11:08 AM EST Routine medical exam HEPATITIS C ANTIBODY REFLEX HCV RT-PCR, QUANT Routine 10/05/2024 11:08 AM EST THINPREP PAP(MIX MAKER) HPV SCR RFX HPV 16,18/45 Routine 10/05/2024 10:30 AM EST Cervical cancer screening from Last 3 Months or Most Recently Relevant to Health Maintenance Results * HEPATITIS C ANTIBODY REFLEX HCV RT-PCR, QUANT (10/05/2024 11:08 AM EST) Hepatitis C Antibody NON-REACTI VE [facility] Comment: Reference Range: Expected result = Non-Reactive 10/05/2024 11:0 8 AM EST 10/05/2024 3:04 PM EST Joel Cortez MD LAB BLOOD ORDERABLES Final Re sult Performing Organization Address City/[facility]/ZIP Co de Phone Number [address] * HIV 1/2 Ag/Ab CMIA Reflex to Confirmation (10/05/2024 11:08 AM EST) Pathologist [facility] HIV DUO NON-REACT ALVARADO [facility] Comment: EXPECTED RESULT = NON-REACTIVE The HIVDuo chemiluminescent assay is a 4th Generation HIV test. This assay is a screening test, and abnormal results will be reflexively confirmed via HIV-1 and HIV-2 antibody tests and/or via molecular assays. Blood 10/05/2024 11:0 8 AM EST 10/05/2024 3:04 PM EST Joel Cortez MD LAB BLOOD ORDERABLES Final Re sult Performing Organization Address [facility] Co de Phone Number [address] * ThinPrep Pap HPV 16,18/45 Reflex on all Dx (10/05/2024 10:30 AM EST) 10/05/2024 10:3 0 AM EST Narrative [facility] - 10/10/2024 12:09 PM EST To view the final report click the scan hyperlink below. Joel Cortez MD LAB AMB PATH/CYTO ORDERABLES Final Result [facility] [id number] [facility] [place] [address], from Last 3 Months or Most Recently Relevant to Health Maintenance Insurance [employer] [facility] Care Teams Virtual Assistant For Advertisers Relationship Specialty Start Date End Date Joel Cortez MD [address] [place] [phone] PCP - General Internal Medicine 07/31/24 Sherrie Kilpatrick PA [address] [place] [id number] Family Medicine 07/22/23 Tomy Ann MD [address] [place] [address] Surgery, General 07/22/23
--- OUTSIDE RECORDS SUMMARY | 2025-11-29 11:19 | XMS_ITS ---
Author Name [facility] Organization Unknown History of Medication Use Medication Directions Dispensed Refills Start Date End Date Stat us sulfamethoxazole-trime thoprim (BACTRIM DS,SEPTRA DS) 800-160 MG per tablet Take 1 tablet by mouth 2 (two) times a day. 03/21/2025 active nitrofurantoin monohydrate (MACROBID) 100 MG capsule Take 1 capsule (100 mg total) by mouth 2 (two) times a day with meals. Dispense generic equivalent of MACROBID 02/18/2025 active phenazopyridine (PYRIDIUM) 200 MG tablet Take 1 tablet (200 mg total) by mouth 3 (three) times a day with meals. 02/18/2025 active nortriptyline (PAMELOR) 10 MG capsule 10/04/2024 active amoxicillin (AMOXIL) 500 MG capsule 1 capsule by Mouth/Oral Cavity route 3 times a day. 09/20/2024 active EPINEPHrine 0.3 mg/0.3 mL IJ auto-injection INJECT 1 PEN IN THE MUSCLE ONE TIME DIRECTED 06/19/2023 active SUMAtriptan (IMITREX) 50 MG tablet TAKE 1 TABLET FOR MIGRAINE,MAY REPEAT IN 2 HOURS MAX 4 TABS/24 HOURS 03/06/2023 05/06/2023 aborted [place] Thyroid 30 MG tablet Take 30 mg by mouth daily. 02/07/2023 active ProAir RespiClick 108 (90 Base) MCG/ACT inhaler INHALE 1-2 PUFFS 4 (FOUR) TIMES A DAY NEEDED FOR WHEEZING. 10/31/2020 active Naltrexone HCl, Pain, (NALTREX PO) Take 6 mg by mouth nightly. 03/21/2025 active Multiple Vitamins-Minerals (ZINC PO) Take by mouth. 05/06/2023 active Coenzyme Q10 (CoQ-10) 30 MG Cap active NALTREXONE HCL PO Take 1 capsule by mouth daily. active thyroid (ARMOUR) 15 MG tablet Take 15 mg by mouth daily. active Allergies Allergen Reaction Severity Comment Documented Date Source Statu s HYDROMORPHONE GI INTOLERANCE/NAUSEA/VOMI TING Dilaudid 03/10/2023 [facility] active Problems Problem Status Onset Date Problem Type Date of Resolution Source Overweight (BMI 25.0-29.9) active 2023-07-20 ProblemAct [facility] History of breast augmentation active 2025-08-23 ProblemAct [facility] Fibromyalgia active 2023-03-10 ProblemAct [facility] Cervical stenosis of spinal canal active 2023-07-20 ProblemAct [facility] Unspecified thoracic, thoracolumbar and lumbosacral intervertebral disc disorder active 2025-04-01 ProblemAct [facility] Complication associated with silicone gel-filled breast implant active EncounterDiagnosisAct [facility] T Exercise-induced asthma active 2023-03-10 ProblemAct [facility] Spondylosis of cervical region without myelopathy or radiculopathy active 2023-07-20 ProblemAct [facility] Migraine without aura and with status migrainosus, not intractable active 2023-09-21 ProblemAct [facility] Arthritis active 2023-07-20 ProblemAct [facility] Elevated serum cholesterol active 2023-07-20 ProblemAct [facility] Exercise-induced asthma active 2023-03-10 ProblemAct [facility] Spondylosis of cervical region without myelopathy or radiculopathy active 2023-07-20 ProblemAct [facility] Hypothyroidism due to acquired atrophy of thyroid active 2023-07-20 ProblemAct [facility] Vitamin D deficiency active 2023-07-22 ProblemAct [facility] Multinodular thyroid active 2023-03-10 ProblemAct [facility] Immunizations Vaccine Date Source Lot Number Status Pneumococcal Conjugate 20-Valent 08/04/2024 [facility] LA6 406 completed Pneumococcal Conjugate 20-Valent 08/04/2024 [facility] LA6 406 completed [facility] Encounters Encounter Type Encounter Reason Primary Diagnosis Location Date Ambulatory Advice Only Advice Only [facility] 10/04/2025 Ambulatory Encounter for genera l adult medical examination without abnormal findings Encounter for general adult medical examination without abnormal findings [facility] 08/23/2025 Ambulatory Follow-up Follow-up [facility] 04/01/2025 Ambulatory Unspecified symptoms and signs involving the genitourinary system Unspecified symptoms and signs involving the genitourinary system [facility] 03/21/2025 Ambulatory Unspecified symptoms and signs involving the genitourinary system Unspecified symptoms and signs involving the genitourinary system [facility] 02/18/2025 Ambulatory [facility] 10/05/2024 Ambulatory Atrophy of thyroid (acquired) Atrophy of thyroid (acquired) [facility] 10/05/2024 Ambulatory Encounter for genera l adult medical examination without abnormal findings Encounter for general adult medical examination without abnormal findings [facility] 08/04/2024 Ambulatory Nose Problem Nose Problem [facility] 03/10/2024 Ambulatory Atrophy of thyroid (acquired) Atrophy of thyroid (acquired) [facility] 07/22/2023 Ambulatory Cervicalgia [facility] 05/06/2023 Ambulatory Encounter for general adult medical examination without abnormal findings [facility] 03/10/2023 Care Team Organization Name Specialty Phone Email Start Date End Da te [facility] 10/04/2025 11/02/2025 [facility] 10/04/2025 [facility] Kathleen Barajas Primary Care 02/25/20252024 [facility] [phone] Primary Care 10/21/2024 04/19/2025 [facility] 08/25/2024 025 [facility] NO PCP Primary Care 03/10/2024 [facility] RICHTER Primary Care 02/25/2024 04/19/2025 [facility] 10/03/2023 024 [facility] KATHLEEN BARAJAS Primary Care 07/22/20232024 [facility] Kathleen Barajas Primary Care 07/22/20232022 [facility] Evelyne Richter Primary Care 03/10/2023 11/02/2025 [facility] RICHTER Primary Care 03/10/2023 03/10/2023
--- OUTSIDE RECORDS SUMMARY | 2025-11-29 11:19 | XMS_ITS | Clinical Summary ---
Author Organization [facility] Prior to 04/30/25 Address [address] [place] [address] Care Team Providers Care Software Team Leader Name Role Phone Lucrecia Maravilla MD Primary Care Provider [phone] Social History Tobacco Use Types Packs/Day Years Used Date Smoking Tobacco: Never Assessed Sex and Gender Information Value Date Recorded Sex Assigned at Not on file Gender Identity Not on file Sexual Orientation Not on file Job Start Date Occupation Industry Not on file Not on file Not on file Plan of Treatment Health Maintenance Due Date Last Done Comments Hepatitis B Vaccines (1 of 3 - 3-dose series) 1970 Hepatitis C Screening 1970 COVID-19 Vaccine (#1) 06/12/1971 Depression Screening 1982 Preventative Health Evaluation 1988 DTap / Tdap / Td (1 - Tdap) 1989 Cervical Cancer Screening (P ap Smear) 1991 Colon Cancer Screening (Colonoscopy) 2015 Breast Cancer Screening (Mammogram) 2020 Shingrix-Zoster Vaccine (1 of 2) 2020 Influenza Vaccine (#1) 2025 Pneumococcal Vaccine Aged Out No long er eligible based on patient's age to complete this topic RSV Ped < 20 months Aged Out No longe r eligible based on patient's age to complete this topic Care Teams Software Team Leader Relationship Specialty Start Date End Date Lucrecia Maravilla MD [address] [id number] PCP - General Internal Medicine 03/25/18
--- OUTSIDE RECORDS SUMMARY | 2025-11-29 11:19 | XMS_ITS | Encounter Summary ---
Author Organization [facility] Address [address] [place] [address] Care Team Providers Care Product Builder Name Role Phone Yasmeen Kilpatrick Unavailable Tomy Ann MD Unavailable [phone] Joel Cortez MD Primary Care Provider [phone] Encounter Details Date Type Department Care Team (Late st Contact Info) Description 10/04/2024 Scanned Document [facility] Department of Internal Medicine [address] [facility] [address] [place] [address] Joel Cortez MD 1 [facility] [address] [place] [address] Social History Tobacco Use Types Packs/Day Years Used Date Smoking Tobacco: Never Smokeless Tobacco: Never PHQ-2 Answer Date Recorded PHQ-2 Total Score 0 08/04/2024 Comments Unknown Sex and Gender Information Value Date Recorded Sex Assigned at Female 03/07/2023 3:17 PM EDT Legal Sex Female 11:57 AM EDT Gender Identity Female 03/07/2023 3:17 PM EDT Sexual Orientation Heterosexual (straight) 03/07 3:17 PM EDT documented as of this encounter Plan of Treatment Upcoming Encounters Date Type Department Care Team (Late st Contact Info) Description 02/20/2026 9:00 AM EDT Office Visit [facility] [address] [place] [address] Joel Cortez MD 1 [facility] [address] [place] [address] documented as of this encounter Visit Diagnoses Not on filedocumented in this encounter Care Teams Product Builder Relationship Specialty Start Date End Date Joel Cortez MD 1 [facility] [address] [place], [place] [phone] PCP - General Internal Medicine 07/31/24 Yasmeen Kilpatrick PA [address] [place] [id number] Family Medicine 07/22/23 Tomy Ann MD [address] [place] [address] Surgery, General 07/22/23 documented as of this encounter
== END 2025-11-29 09:23 | disposition home or self-care (01) ==
PROVIDERS: PCP Student in an Organized Health Care Education/Training Program; Visit Provider Student in an Organized Health Care Education/Training Program
DX: E03.9 Hypothyroidism, unspecified (principal); R31.29 Other microscopic hematuria; E78.00 Pure hypercholesterolemia, unspecified; R53.83 Other fatigue; R63.5 Abnormal weight gain; G47.9 Sleep disorder, unspecified

== ENCOUNTER 2025-11-29 09:04 | Outpatient (REF) | payer BC, SELFPAY ==
[2025-11-29 14:08] LABS: Appearance Urine Clear; Glucose Urine UA Negative (Negative); PH 8.0 (5.0-9.0); Specific Gravity - Urine 1.015 (1.005-1.025); UMIC TRIGGER UACC YES
== END 2025-11-29 09:05 | disposition home or self-care (01) ==
LOC: HO.HKASLDS 09:04
PROVIDERS: PCP Student in an Organized Health Care Education/Training Program; Visit Provider Student in an Organized Health Care Education/Training Program
DX: R53.83 Other fatigue (principal); R63.5 Abnormal weight gain; R31.29 Other microscopic hematuria; R82.81 Pyuria; E78.00 Pure hypercholesterolemia, unspecified; R79.89 Other specified abnormal findings of blood chemistry; G47.9 Sleep disorder, unspecified; Z90.710 Acquired absence of both cervix and uterus
CPT/HCPCS: 81001; 81003